=== PATIENT | female | born 1960 | race Caucasian/White ===

== ENCOUNTER 2016-08-11 17:07 | Emergency (ER) | payer MEDICARE, MEDICAID ==
[2016-08-11 17:07] VITALS: BMI 34.6
[2016-08-11 17:16] VITALS: TEMP 98
[2016-08-11 17:37] LABS: AUTOMATED BASOPHIL 2.5 % (0-2); AUTOMATED EOSINOPHIL 3.4 % (0-5); AUTOMATED LYMPH 40.7 % (17-44); AUTOMATED MONOCYTE 6.7 % (3-10); AUTOMATED NEUTROPHIL 46.7 % (45-76); MPV 10.4 fL (7.4-10.4)
[2016-08-11 17:52] LABS: BLOOD UREA NITROGEN 11 MG/DL (7-17); CALC CORRECTED 9.7 MG/DL (8.4-10.2); CALCULATED OSMOLALITY 262 MOs/Kg (270-290); CHLORIDE 103 mEq/L (98-107); ETOH-MGDL < 10 mg/dL; GLUCOSE 85 mg/dL (70-99); SODIUM LEVEL 137 mEq/L (137-146); TOTAL PROTEIN 8.1 G/DL (6.3-8.2)
[2016-08-11 17:55] LABS: ALL NEG? NO
--- NOTE | 2016-08-11 18:20 | EDPRACDOC ---
- General Information Chief Complaint: Psychiatric Illness Stated Complaint: BACK PAIN/SI Time Seen by Provider: 08/11/16 18:13 Information Source: Patient Mode of Arrival: Ambulance Home Medications: Home Medications Amlodipine [Norvasc] 10 mg PO DAILY 06/06/15 Levothyroxine [Synthroid, Levoxyl] 50 mcg PO DAILY #30 tablet 06/06/15 Lisinopril [Prinivil] 40 mg PO DAILY #30 tablet 06/06/15 ClonazePAM [Klonopin] 0.5 mg PO BID #20 tablet 03/19/16 ClonazePAM [Klonopin] 0.5 mg PO BID PRN 05/22/16 Cyclobenzaprine HCl [Flexeril] 10 mg PO Q8H 05/22/16 Docusate Sodium [Colace] 100 mg PO BID 05/22/16 Hydrocodone Bit/Acetaminophen [[place] 5-325 Tablet] 1 tab PO Q6H PRN 05/22/16 Multivitamin [Multiple Vitamins] 1 each PO QAM 05/22/16 Omeprazole [Prilosec] 20 mg PO 0600 05/22/16 PEG-Electrolytes (Miralax) [Miralax] 17 gm PO DAILY 05/22/16 Ropinirole HCl [Requip] 1 mg PO QHS 05/22/16 Fentanyl [Duragesic] 50 mcg TOP Q72H 08/11/16 Gabapentin 300 mg PO TID 08/11/16 Lactulose 10 gm PO DAILY 08/11/16 Oxcarbazepine 150 mg PO BID 08/11/16 Quetiapine Fumarate [Seroquel] 100 mg PO QHS 08/11/16 Sertraline HCl [Zoloft] 100 mg PO DAILY 08/11/16 Trazodone HCl 100 mg PO QHS 08/11/16 Allergies/Adverse Reactions: Allergies Allergy/AdvReac Type Severity Reaction Status Date / Time clindamycin Allergy Diarrhea Verified 08/11/16 17:17 meperidine HCl [From Demerol] Allergy Hives* Verified 08/11/16 17:17 - History of Present Illness Onset: 1 DAY HPI: PT STATES SHE HAS CHRONIC BACK PAIN, PAIN IS SEVERE, STATES THAT TODAY SHE GOT "FRUSTRATED" DUE TO HER BACK PAIN AND "SAID THE WRONG THING", PT STATES THAT SHE WAS JUST UPSET AND DID NOT MEAN TO SAY THAT SHE WANTED TO HURT HERSELF. PT STATES THAT SHE IS FINALLY GETTING THE HELP THAT SHE NEEDS AT [facility], STATES "I'M FINALLY HAPPY AND WOULD NEVER HURT MYSELF." Reason for Seeking Treatment: Self-referral Presents With: Reports: Depression Expresses: Reports: None Suicidal Plan: Reports: None Stressors: Reports: Relationships Relevant History: Reports: Depression, Inpatient Treatment, Outpatient Treatment Medication Compliance: Yes Able to Care for Self: Yes Able to Control Self: Yes Associated Signs and Symptoms: Denies: Amphetamines, Anxiety, Anger, Cocaine, Depression, ETOH, Hopeless, Marijuana - Treatment Prior to ED Arrival Reported Medications/Treatment [facility] ED Past Medical History - History Reviewed Yes Nurses notes reviewed and agree except as marked - Patient Medical History Cardiac History: Reports: Hypertension Respiratory History: Reports: Asthma, COPD GI/ History: Reports: Gastroesophageal Reflux Psychological History: Reports: Depression, Anxiety, Schizophrenia, Bipolar Disorder, Substance Use Disorder (crack cocaine) Additional Past Medical History: CHRONIC BACK PAIN Surgical History: Reports: Other (ANKLE SURGERY, KNEE SURGERY). Denies: Cholecystectomy, Hysterectomy, Tonsillectomy/Adnoidectomy - Social Medical History Smoking Status: Heavy tobacco smoker (5 or more cigarettes/day or daily pipe/ cigar) Social History: Reports: Other Substance Use (crack cocaine) ETOH: None Substance Abuse: None EDM Review of Systems - Review of Systems Constitutional: negative: Chills, Fever Eyes: negative: Blurred Vision, Double Vision Ears: negative: Drainage Throat: negative: Pain Nose: negative: Congestion, Discharge Respiratory: negative: Cough, Shortness of Breath, Wheezing Cardiovascular: negative: Chest Pain, Palpitations Gastrointestinal: negative: Diarrhea, Nausea, Pain, Vomiting Genitourinary: negative: Dysuria, Frequency Neurological: negative: Dizziness, Headache, Numbness, Weakness Musculoskeletal: No Symptoms Reported Integumentary: No Symptoms Reported Psychiatric: Depression - Physical Exam Constitutional: Alert (Awake), No apparent distress Oriented to: Time, Person, Place Last recorded Vital Signs: Last Vital Signs Temp 98.0 F 08/11/16 17:09 Pulse 90 08/11/16 17:09 Resp 20 08/11/16 17:09 BP 125/62 08/11/16 17:09 Pulse Ox 94 08/11/16 17:09 Oxygen Pulse Oxygen Saturation 94 O2 Device Room Air Oxygen Flow Rate Fraction of Inspired Oxygen ( FIO2) - HEENT Head: Normal ( normocephalic) Eye Exam: Normal (PERRL, EOMI, Sclera white) Oropharynx: Normal (Pharynx:Moist without exudate,Gums-no swelling) Tympanic Membrane: Normal ENT EAC: Normal TMJ: Normal Nose: No Symptoms Reported (septum midline) Neck: Normal (FROM, trachea at midline) - Respiratory/Cardiovascular Respiratory: Normal - CTA (BBS clear to auscultation without adventitious sounds ) Cardiovascular: Normal (RRR without murmur, gallop or rub) - GI Auscultation: Normal (NABS) Palpation: Normal (Soft,No rebound or guarding, non distended) Tenderness: Non tender Singh's Sign: Negative - Musculoskeletal Back: Normal (Non-Tender) Extremities: Normal (Normal tone, Pulses 2+ No cyanosis or edema, FROM) - Integumentary Skin: Normal, Warm, Dry Lymphatics: Normal (no adenopathy) - Neurologic Memory Impaired: Normal Motor Function: Normal (Normal tone, Pulses 2+ No cyanosis or edema, FROM) Cranial Nerve: Normal (CN II-X11 intact sensation, strength 5/5) Cerebellar: Normal Mood Description: Normal Perception: Normal Initial Evaluation Apperance: Neat, Older than stated age Attitude: Cooperative Mood: Euthymic Affect: Congruent w/ mood Insight: Good Judgement: Good Memory Description: Intact Depressive Symptoms: Reports: Sadness Anxiety Symptoms: Denies: Excessive Worries, Panic Attacks Manic/Hypomanic Symptoms: Denies: Expansive/irritable mood, Decreased Coping Skills, Racing Thoughts, Incr.pleasurable activity, Mood Swings, Pressured Speech Delusion Description: Reports: Not Present Hallucination Type: Reports: None - Differential Diagnosis Anxiety, Depression, Personality disorder, Schizophrenia - Results 08/11/16 17:23 08/11/16 17:23 WBC 3.5 xk/uL (3.8-10.8) L 08/11/16 17:23 RBC 3.77 xM/uL (4.20-5.40) L 08/11/16 17:23 Hgb 11.6 g/dL (12.0-16.0) L 08/11/16 17:23 Hct 34.3 % (36-47) L 08/11/16 17:23 MCV 91 fL (81-99) 08/11/16 17:23 MCH 30.7 pg (27-32) 08/11/16 17: MCHC 33.8 g/dl (33-36) 08/11/16 17: RDW 14.0 % (11.5-14.5) 08/11/16 17:23 Plt Count 66 xk/uL (130-400) L 08/11/16: MPV 10.4 fL (7.4-10.4) 08/11/16 17: Neut % (Auto) 46.7 % (45-76) 08/11/16: Lymph % (Auto) 40.7 % (17-44) 08/11/16: [place] % (Auto) 6.7 % (3-10) 08/11/16: Eos % (Auto) 3.4 % (0-5) 08/11/16: Baso % (Auto) 2.5 % (0-2) H 08/11/16: Absolute Neuts (auto) 1.61 xk/uL (1.7-8.2) L 08/11/16 17: Absolute Lymphs (auto) 1.40 xk/uL (0.65-4.75) 08/11/16 17: Sodium 137 mEq/L (137-146) 08/11/16 17: Potassium 4.3 mEq/L (3.5-5.1) 08/11/16: Chloride 103 mEq/L (98-107) 08/11/16 17: Carbon Dioxide 27 mMOL/L (22-33) 08/11/16 17:23 Anion Gap 11 mEq/L (8-16) 08/11/16 17:23 BUN 11 MG/DL (7-17) 08/11/16 17:23 Creatinine 0.50 MG/DL (0.52-1.04) L 08/11/16 17:23 Estimated GFR (MDRD) > 60 mL/min (>=60) 08/11/16 17:23 Glucose 85 mg/dL (70-99) 08/11/16 17: Calculated Osmolality 262 MOs/Kg (270-290) L 08/11/16 17:23 Calcium 9.0 MG/DL (8.4-10.2) 08/11/16 17:23 Corrected Calcium 9.7 MG/DL (8.4-10.2) 08/11/16 17:23 Total Bilirubin 1.0 MG/DL (0.2-1.3) 08/11/16 17:23 AST 111 IU/L (14-36) H 08/11/16 17:23 ALT 63 IU/L (9-52) H 08/11/16 17:23 Alkaline Phosphatase 124 IU/L (38-126) 08/11/16 17:23 Total Protein 8.1 G/DL (6.3-8.2) 08/11/16 17:23 Albumin 3.3 G/DL (3.5-5.0) L 08/11/16 17:23 Plasma/Serum Ethyl Alc % (<0.01) 08/11/16 17:23 Lab Results 08/11/16 08/11/16 17:23 17:23 WBC 3.5 L RBC 3.77 L Hgb 11.6 L Hct 34.3 L MCV 91 MCH 30.7 MCHC 33.8 RDW 14.0 Plt Count 66 L MPV 10.4 Neut % (Auto) 46.7 Lymph % (Auto) 40.7 [place] % (Auto) 6.7 Eos % (Auto) 3.4 Baso % (Auto) 2.5 H Absolute Neuts (auto) 1.61 L Absolute Lymphs (auto) 1.40 Sodium 137 Potassium 4.3 Chloride 103 Carbon Dioxide 27 Anion Gap 11 BUN 11 Creatinine 0.50 L Estimated GFR (MDRD) > 60 Glucose 85 Calculated Osmolality 262 L Calcium 9.0 Corrected Calcium 9.7 Total Bilirubin 1.0 AST 111 H ALT 63 H Alkaline Phosphatase 124 Total Protein 8.1 Albumin 3.3 L Plasma/Serum Ethyl Alc - Additional Information Additional Information: PT ADAMANTLY DENIES ANY SI/HI, STATES "I'M FINALLY HAPPY", STATES I WOULD NEVER HURT MYSELF, PT STATES THAT SHE WAS JUST FRUSTRATED AND DOES NOT WANT TO HURT HERSELF OR OTHERS, ADAMANTLY DENIES A/V HALLUCINATIONS. Decision Time to Discharge: 18:27 - Departure Disposition: Home Condition: Stable Final Diagnosis: Chronic depression, Chronic back pain Instructions: Back Pain (ED), Core Strengthening Exercises (GEN) Referrals: hSweta Vuong MD [Primary Care Provider] - One Week Prescriptions: No Action Amlodipine [Norvasc] 10 mg PO DAILY Lisinopril [Prinivil] 40 mg PO DAILY #30 tablet Levothyroxine [Synthroid, Levoxyl] 50 mcg PO DAILY #30 tablet ClonazePAM [Klonopin] 0.5 mg PO BID #20 tablet Hydrocodone Bit/Acetaminophen [[place] 5-325 Tablet] 1 tab PO Q6H PRN PRN Reason: Pain ClonazePAM [Klonopin] 0.5 mg PO BID PRN PRN Reason: BREAKTHROUGH ANXIETY Cyclobenzaprine HCl [Flexeril] 10 mg PO Q8H Docusate Sodium [Colace] 100 mg PO BID Ropinirole HCl [Requip] 1 mg PO QHS Omeprazole [Prilosec] 20 mg PO 0600 PEG-Electrolytes (Miralax) [Miralax] 17 gm PO DAILY Multivitamin [Multiple Vitamins] 1 each PO QAM Lactulose 10 gm PO DAILY Sertraline HCl [Zoloft] 100 mg PO DAILY Oxcarbazepine 150 mg PO BID Gabapentin 300 mg PO TID Trazodone HCl 100 mg PO QHS Fentanyl [Duragesic] 50 mcg TOP Q72H Quetiapine Fumarate [Seroquel] 100 mg PO QHS
[2016-08-11 18:26] LABS: LEUKOCYTES/URINE 2+ (NEGATIVE); NITRITE/URINE NEG (NEGATIVE); URINE OCCULT BLOOD NEG (NEG/TRACE); WBC/URINE TNTC (0-5)
[2016-08-11 18:32] LABS: MDMA* NEG (NEGATIVE); METHAMPHETAMINES NEG (NEGATIVE); OXYCODONE NEG (NEGATIVE)
[2016-08-11 20:31] VITALS: BP 130/66; PULSE 79
== END 2016-08-11 20:29 ==
LOC: ED 17:07
DX: M54.9 Dorsalgia, unspecified (principal); G89.29 Other chronic pain; F32.9 Major depressive disorder, single episode, unspecified
CPT/HCPCS: 36415; 80053; 80307; 81001; 85025; 86592; 99284; G0480